=== PATIENT | male | born 1980 | race Caucasian/White ===

== ENCOUNTER 2022-03-08 10:33 | Observation (INO) | payer MEDICARE, OTHER, SELFPAY ==
[2022-03-08] VITALS (22 sets, daily range): BP systolic 126–171; BP diastolic 76–114; PULSE 60–93; RESP 17–20; TEMP 36.6–37.4; O2SAT 95–100; BMI 34.2; BMI 34.6
--- NOTE | 2022-03-08 10:50 | PC.NURSE ---
DR. FOLEY AT BEDSIDE
--- NOTE | 2022-03-08 10:54 | CT_ITS ---
FINAL REPORT TECHNIQUE: Postcontrast axial images through the abdomen and pelvis were performed. This study was performed with techniques to keep radiation doses as low as reasonably achievable, (ALARA). Individualized dose reduction techniques using automated exposure control or adjustment of mA and/or kV according to the patient's size were employed. CLINICAL HISTORY: epi and RUQ pain, periumb hernia with bruising FINDINGS: Abdomen: There is mild bibasilar atelectasis. There is mild fatty infiltration of the liver. Mild biliary ductal dilatation is identified of uncertain significance. The gallbladder is moderately distended. There is a possible stone near the neck of the gallbladder, cholecystitis is not excluded. The spleen is unremarkable. The adrenals are normal. The pancreas is unremarkable. The kidneys enhance appropriately. The aorta is normal in caliber. No free fluid or adenopathy is identified. No findings for mechanical bowel obstruction are identified. Pelvis: The appendix is not identified, may be surgically absent. There is a lobular umbilical hernia containing fat. Hernia sac measures 70 mm in transverse dimension. The urinary bladder is unremarkable. No free fluid, free air, abscess or adenopathy is identified. IMPRESSION: Mild biliary ductal dilatation of uncertain significance, MRCP may be helpful. Gallbladder is moderately distended with possible stone near the gallbladder neck, cholecystitis is not excluded. Nuclear medicine hepatobiliary scan may be helpful. Umbilical hernia as above. Reviewed, Interpreted and Dictated by Roni Sotomayor III, MD Transcribed by Екатерина Oneil Authenticated and [facility]
--- NOTE | 2022-03-08 10:57 | HMH.EDGENADL ---
Discharge Plan Disposition Chief Complaint: Nausea/Vomiting/Diarrhea Clinical Impressions Clinical Impression: Choledocholithiasis with acute cholecystitis Discharge ED Provider: Sam Vasquez General Adult HPI General Chief complaint: Nausea/Vomiting/Diarrhea Stated complaint: abdominal pain Time Seen by Provider: 03/08/22 10:41 Mode of Arrival: Ambulatory Source of Information: Patient Limitations: No Limitations Description of Symptoms (Recalled from ER Triage Doc. by RN): pt to ed c/o RUQ pain that started this morning. pt reports episodes of vomiting today. History of Present Illness HPI narrative: This is a 41-year-old male who is otherwise healthy, surgical history of appendectomy, periumbilical hernia repair (residual hernia) presenting with abdominal pain. Patient states that he began having abdominal pain at 4:30 in the morning. He woke up with the abdominal pain and it was initially 8 out of 10, but now 10 out of 10, stabbing, radiates to the right upper quadrant. Starts in the epigastric area. Does not radiate to back, neck, shoulder. Associated with nonbloody, nonbilious vomiting. Patient has not had a bowel movement in approximately 6 days, but states that he is still passing gas. Patient also states that it is normal for him to have a bowel movement approximately once a week. Denies recent travel, trauma, dysuria, hematuria, history of kidney stones, new medication additions, any other relevant history. Related Data Home Medications Medication Instructions Recorded Confirmed benztropine 1 mg tablet 1 mg PO BID seizures 03/08/22 03/08/22 divalproex 500 mg tablet,extended 500 mg PO DAILY seizures 03/08/22 03/08/22 release 24 hr fluphenazine HCl 5 mg tablet 5 mg PO BID behavior 03/08/22 03/08/22 Allergies Allergy/AdvReac Type Severity Reaction Status Date / Time No Known Allergies Allergy Verified 03/08/22 10:57 [facility] Disclaimer: The information contained in this section may have been updated after the patient was seen, as this information can be updated by other users. Social History Smoking Status: Current every day smoker alcohol intake: never current occupational status: unemployed Travel in the last 8 weeks: None ROS Obtained: Yes All systems reviewed & no additional complaints except as documented Physical Exam General General appearance: alert, in distress (Moving around in bed, cannot seem to get comfortable.) and obese Head Head exam: atraumatic, normocephalic and normal inspection Eye Eye exam: Present normal appearance, PERRL and EOMI ENT ENT exam: Present normal exam, normal oropharynx, mucous membranes moist, TM's normal bilaterally and normal external ear exam Neck Neck exam: Present normal inspection, full ROM and trachea midline; Absent meningismus or lymphadenopathy Chest Chest inspection: Present normal inspection and symmetric chest wall rise; Absent tenderness Respiratory Respiratory exam: Present normal lung sounds bilaterally; Absent respiratory distress, wheezes, stridor, accessory muscle use or prolonged expiratory phase Cardiovascular Cardiovascular exam: Present regular rate, normal rhythm and normal heart sounds; Absent JVD Abdominal Exam Abdominal exam: Present soft, distention, tenderness, normal bowel sounds, Padgett's sign and hernia (Reducible umbilical hernia with surrounding ecchymoses); Absent guarding, rebound, rigidity, Rovsing's sign, tenderness at McBurney's Point or ascites Abdominal tenderness: Present RLQ and epigastrium Extremities Exam Extremities exam: Present normal inspection, full ROM and normal capillary refill; Absent calf tenderness Back Exam Back exam: Present normal inspection; Absent tenderness, CVA tenderness (R) or CVA tenderness (L) Neurological Exam Neurological exam: Present alert, oriented X3 and CN II-XII intact; Absent motor sensory deficit Psychiatric Psychiatric exam: Present normal affect and normal mood Skin S
[2022-03-08 11:01] LABS: Microscopic, Urine URINE MICROSCOPIC (MICROSCOPIC)
[2022-03-08 11:04] LABS: Appearance,Urine TURBID (Clear); Bilirubin,Urine Negative (Negative); Blood, Urine TRACE-I (Negative); Color,Urine YELLOW (Yellow); Glucose,Urine (UA) Negative (Negative); Ketones,Urine 1+ (Negative); Leukocyte Esterase,Urine Negative (Negative); Nitrate,Urine Negative (Negative); Protein,Urine Negative (Negative); Specific Gravity, Urine 1.015 (1.005-1.030)
[2022-03-08 11:19] LABS: WBC,Urine Occasional #/hpf (0-3)
[2022-03-08 11:20] LABS: Amorphous Sediment,Urine 2+ /lpf; Bacteria,Urine 3+ /lpf; Squamous Epithelial Cell,Urine Occasional #/hpf (0-5)
[2022-03-08 11:27] LABS: Coronavirus 19, PCR Not Detected (NotDetected); Influenza A, PCR Not Detected (NotDetected); Influenza B, PCR Not Detected (NotDetected)
[2022-03-08 11:36] LABS: Chloride 103 mmol/L (98-107); Potassium 4.2 mmoL/L (3.5-5.1); Sodium 140 mmol/L (136-145)
[2022-03-08 11:38] LABS: Alanine Aminotransferase 18 U/L (12-78); Aspartate Amino Transferase 24 U/L (17-59); Basophils # 0.1 K/mm3 (0-0.2); Basophils % 0.6 % (0.1-2.0); Blood Urea Nitrogen 9 mg/dl (9-20); Creatinine Clearance Estimated 260 mL/min (50-200); Eosinophils # 0.1 K/mm3 (0.0-0.4); Eosinophils % 0.6 % (0.1-12.0); Estimated Glomerular Filt Rate 150 ml/min (>60); GFR (African American) 181 ML/MIN (>60); Hematocrit 45.1 % (42.0-52.0); Hemoglobin 14.9 g/dL (14.1-18.0); Lymphocytes # 2.3 K/mm3 (0.7-4.5); Lymphocytes % 17.2 % (10-50); Mean Corpuscular HGB Conc 33.1 g/dL (31.8-35.4); Mean Corpuscular Hemoglobin 29.4 pg (27.0-31.2); Mean Corpuscular Volume 88.8 fl (80-94); Mean Platelet Volume 8.5 fl (7.4-10.4); Monocytes # 0.5 K/mm3 (0.1-1.0); Monocytes % 3.9 % (1.7-9.3); Neutrophils # 10.5 K/mm3 (1.8-7.8); Neutrophils % 77.6 % (37.0-80.0); Platelet Count 239 K/mm3 (142-424); Red Blood Count 5.08 M/mm3 (4.60-6.20); Red Cell Distribution Width 14.6 % (11.5-17.5); White Blood Count 13.6 K/mm3 (4.8-10.8)
[2022-03-08 11:39] LABS: Albumin/Globulin Ratio 1.1 (1.1-1.8); Alkaline Phosphatase 67 U/L (38-126); Anion Gap 15.2 mEq/L (5-15); Bilirubin,Total 0.4 mg/dl (0.2-1.3); Calcium 9.3 mg/dl (8.4-10.2); Carbon Dioxide 26 mmol/L (22.0-30.0); Globulin 3.7 g/dL (1.3-3.2); Glucose 124 mg/dl (74-100); Lipase 33 U/L (23-300); Total Protein,Serum 7.7 g/dl (6.3-8.2)
[2022-03-08 11:45] LABS: Lactic Acid 2.5 mmol/L (0.7-2.1)
--- NOTE | 2022-03-08 13:57 | US_ITS ---
FINAL REPORT CLINICAL HISTORY: stones, dilation and RUQ pain FINDINGS: Sonographic images of the right upper quadrant were obtained. The pancreas is partially obscured.The liver has an unremarkable appearance. There are multiple echogenic foci in the gallbladder without well-defined shadowing, may represent tumefactive sludge or stones with poorly demonstrated shadowing. The common duct measures 5 mm. Limited images of the right kidney are unremarkable. IMPRESSION: Multiple echogenic foci in the gallbladder, may represent tumefactive sludge or stones with poorly demonstrated shadowing. Recommend follow-up ultrasound. Reviewed, Interpreted and Dictated by Roni Sotomayor III, MD Transcribed by Екатерина Oneil Authenticated and [facility]
--- NOTE | 2022-03-08 15:03 | PC.NURSE ---
FAMILY UPDATED AT THIS TIME
[2022-03-08 15:24] LABS: Reflex Lactic Add Lactic Reflex
--- NOTE | 2022-03-08 15:33 | PC.NURSE ---
Called for transfer of patient.
[2022-03-08 16:11] LABS: Lactic Acid Follow Up (RFLX 1) 1.6 mmol/L (0.7-2.1)
--- NOTE | 2022-03-08 20:47 | EXP.HP ---
History of Present Illness *Admission Date: 03/08/22 *Reason for visit:: Abdominal Pain, nausea, vomiting, constipation *History of present illness: Mr. Harris is a 41-year-old male with a past medical history of Bipolar Disorder and Schizophrenia. He presented to [facility] due to a 1-day reported history of abdominal pain associated with nausea, vomiting, abdominal bloating and constipation. He also reported body aches and chills with the symptoms. In the ER he underwent a CT of the abdomen and pelvis that showed a mild biliary ductal dilatation and a moderately distended gallbladder. LFT's and biliribuin were normal. Lactic Acid was 1.6. WBC showed a elevated WBC at 13.6. The ER contacted for tranfer for evaluation by GI for possible MRCP. The patient will be admitted while we await transfer to a higher level facility due to no specialist available at the site. The plan of care was discussed with the patient in the ER on admission. He verbalized understanding and agreement with the plan of care. [facility] Disclaimer: The information contained in this section may have been updated after the patient was seen, as this information can be updated by other users. Medical History (Updated 03/08/22 @ 20:58 by Jonathan Singh DNP) Bipolar disorder Schizophrenia Surgical History (Updated 03/08/22 @ 20:55 by Jonathan Singh DNP) H/O umbilical hernia repair History of appendectomy Social History Smoking Status: Current every day smoker alcohol intake: never current occupational status: unemployed Travel in the last 8 weeks: None Review of Systems Constitutional Constitutional: Reports system reviewed and no additional complaints, except as documented Eyes Eyes: Reports system reviewed and no additional complaints, except as documented ENT Ears, Nose, Mouth, and Throat: Reports system reviewed and no additional complaints, except as documented *Cardiovascular Cardiovascular: Reports system reviewed and no additional complaints, except as documented *Respiratory Respiratory: Reports system reviewed and no additional complaints, except as documented *Gastrointestinal Gastrointestinal: Reports abdominal pain, Reports bloating, Reports change in bowel habits, Reports constipation, Reports nausea and Reports vomiting *Genitourinary Genitourinary: Reports system reviewed and no additional complaints, except as documented *Musculoskeletal Musculoskeletal: Reports system reviewed and no additional complaints, except as documented Integumentary/Breasts Skin/Breast: Reports system reviewed and no additional complaints, except as documented *Neurologic Neurologic: Reports system reviewed and no additional complaints, except as documented Psychiatric Psychiatric: Reports as per HPI Endocrine Endocrine: Reports system reviewed and no additional complaints, except as documented Hematologic/Lymphatic Hematologic/Lymphatic: Reports system reviewed and no additional complaints, except as documented Allergic/Immunologic Allergic/Immunologic: Reports system reviewed and no additional complaints, except as documented Meds Home Medications and Allergies Home Medications Medication Instructions Recorded Confirmed Type benztropine 1 mg tablet 1 mg PO BID seizures 03/08/22 03/08/22 History divalproex 500 mg tablet,extended 500 mg PO DAILY seizures 03/08/22 03/08/22 History release 24 hr fluphenazine HCl 5 mg tablet 5 mg PO BID behavior 03/08/22 03/08/22 History polyethylene glycol 3350 17 gram 17 g PO DAILY 30 days #30 packets 03/09/22 Rx oral powder packet (Miralax) New Prescriptions to Start Prescriptions: polyethylene glycol 3350 [Miralax] Archie Woo Allergies Allergy/AdvReac Type Severity Reaction Status Date / Time No Known Allergies Allergy Verified 03/08/22 10:57 Exam Data for Last 24 hours Vital signs and Labs f
--- NOTE | 2022-03-08 23:23 | PC.NURSE ---
pt arrived to floor via wheelchair @ [phone].
--- NOTE | 2022-03-08 23:29 | PC.NURSE ---
Pt. on the floor by w/c by nursing clerk.
--- NOTE | 2022-03-09 00:23 | PC.NURSE ---
Jonathan DIOR called and aware pt. refused some of his medications.
[2022-03-09 03:43] VITALS: BP 106/61; PULSE 75; RESP 18; TEMP 37.4; O2SAT 96
[2022-03-09 03:44] VITALS: BMI 34.8
--- NOTE | 2022-03-09 05:27 | PC.NURSE ---
No acute changes since admission to the floor.
--- NOTE | 2022-03-09 07:39 | EXP.DC.SUM ---
General Admission date:: 03/08/22 Discharge date: 03/09/22 HPI HPI HPI: Mr. Harris is a 41-year-old male with a past medical history of Bipolar Disorder and Schizophrenia. He presented to [facility] due to a 1-day reported history of abdominal pain associated with nausea, vomiting, abdominal bloating and constipation. He also reported body aches and chills with the symptoms. In the ER he underwent a CT of the abdomen and pelvis that showed a mild biliary ductal dilatation and a moderately distended gallbladder. LFT's and biliribuin were normal. Lactic Acid was 1.6. WBC showed a elevated WBC at 13.6. The ER contacted for tranfer for evaluation by GI for possible MRCP. The patient will be admitted while we await transfer to a higher level facility due to no specialist available at the site. The plan of care was discussed with the patient in the ER on admission. He verbalized understanding and agreement with the plan of care. Hospital Course Hospital Course Hospital Course: 41-year-old male originally admitted because of abdominal pain and concern for choledocholithiasis. CT of abdomen showed questionable biliary dilatation and distended gallbladder, did not show stones in common bile duct however. Ultrasound obtained showing no concern for cholecystitis and no common bile duct dilatation or blockage. Review of labs showed that his liver enzymes and bilirubin were normal on initial presentation. Repeat labs the following morning still stable with no elevation in liver enzymes or bilirubin. Further history obtained from patient elicited that he has not had a bowel movement in at least [address] shows significant stool burden in right colon and intestinal gas. Pain better the following morning. Given his clinical stability, afebrile, improvement in abdominal symptoms, stable labs, I do not feel at this time this patient has choledocholithiasis. Will initiate on daily MiraLAX for constipation. Would benefit from regular bowel regimen and further monitoring. Stable for discharge home. We will cancel transfer request. Exam Data for Last 24 hours Vital signs and Labs for Last 24 Hours: Temp Pulse Resp BP Pulse Ox 99.4 F 75 18 106/61 L 96 03/09/22 03:43 03/09/22 03:43 03/09/22 03:43 03/09/22 03:43 03/09/22 03:43 Laboratory Results - last 24 hr 03/08/22 10:36: Urine Color Yellow, Urine Appearance Turbid, Urine pH 8.0, Ur Specific [place] 1.015, Urine Protein Negative, Urine Glucose (UA) Negative, Urine Ketones 1+, Urine Blood Trace-i, Urine Nitrate Negative, Urine Bilirubin Negative, Urine Urobilinogen 1.0, Ur Leukocyte Esterase Negative, Urine RBC None, Urine WBC Occasional, Ur Squamous Epith Cells Occasional, Amorphous Sediment 2+, Urine Bacteria 3+ 03/08/22 11:00: WBC 13.6 H, RBC 5.08, Hgb 14.9, Hct 45.1, MCV 88.8, MCH 29.4, MCHC 33.1, RDW 14.6, Plt Count 239, MPV 8.5, Neut % (Auto) 77.6, Lymph % (Auto) 17.2, [place] % (Auto) 3.9, Eos % (Auto) 0.6, Baso % (Auto) 0.6, Neut # (Auto) 10.5 H, Lymph # (Auto) 2.3, [place] # (Auto) 0.5, Eos # (Auto) 0.1, Baso # (Auto) 0.1 03/08/22 11:00: Sodium 140, Potassium 4.2, Chloride 103, Carbon Dioxide 26, Anion Gap 15.2 H, BUN 9, Creatinine 0.60 L, Estimated Creat Clear 260, Estimated GFR 150, Est GFR ( Amer) 181, Glucose 124 H, Calcium 9.3, Total Bilirubin 0.4, AST 24, ALT 18, Alkaline Phosphatase 67, Total Protein 7.7, Albumin 4.0, Globulin 3.7 H, Albumin/Globulin Ratio 1.1, Lipase 33 03/08/22 11:00: Lactate 2.5 H 03/08/22 11:00: SARS-CoV-2 (PCR) Not detected, Influenza A Untype (PCR) Not detected, Influenza Type B (PCR) Not detected 03/08/22 15:41: Lactate 1.6 I & O for Last 24 hours: Intake & Output 03/06/22 03/07/22 03/08/22 03/09/22 23:59 23:59 23:59 23:59 Intake Total 350 / 350 Output Total 0 / 0 Balance 0 / 0 350 / 350 Weight 112.179 kg 112.973 kg Constitutional Constitutional: no acute distress and obese *Routine HEEN
[2022-03-09 08:00] VITALS: BP 124/70; PULSE 74; RESP 18; TEMP 37.2; O2SAT 94
--- NOTE | 2022-03-09 10:42 | PC.NURSE ---
Report given to SHANICE Covarrubias at this time.
[2022-03-09 11:01] LABS: Basophils # 0.1 K/mm3 (0-0.2); Basophils % 0.6 % (0.1-2.0); Eosinophils # 0.5 K/mm3 (0.0-0.4); Eosinophils % 3.4 % (0.1-12.0); Hematocrit 41.4 % (42.0-52.0); Hemoglobin 13.7 g/dL (14.1-18.0); Lymphocytes # 2.8 K/mm3 (0.7-4.5); Lymphocytes % 17.9 % (10-50); Mean Corpuscular HGB Conc 33.2 g/dL (31.8-35.4); Mean Corpuscular Hemoglobin 29.1 pg (27.0-31.2); Mean Corpuscular Volume 87.7 fl (80-94); Mean Platelet Volume 8.3 fl (7.4-10.4); Monocytes # 1.4 K/mm3 (0.1-1.0); Monocytes % 8.8 % (1.7-9.3); Neutrophils % 69.3 % (37.0-80.0); Platelet Count 225 K/mm3 (142-424); Red Blood Count 4.72 M/mm3 (4.60-6.20); Red Cell Distribution Width 14.4 % (11.5-17.5); White Blood Count 15.9 K/mm3 (4.8-10.8)
[2022-03-09 11:04] LABS: MANUAL DIFFERENTIAL MANUAL DIFFERENTIAL (MANUAL DIFF)
[2022-03-09 11:09] LABS: Chloride 101 mmol/L (98-107); Potassium 3.8 mmoL/L (3.5-5.1); Sodium 136 mmol/L (136-145)
[2022-03-09 11:11] LABS: Blood Urea Nitrogen 10 mg/dl (9-20); Creatinine Clearance Estimated 226 mL/min (50-200); Estimated Glomerular Filt Rate 126 ml/min (>60); GFR (African American) 152 ML/MIN (>60)
[2022-03-09 11:12] LABS: Alanine Aminotransferase 8 U/L (12-78); Albumin Level 3.5 g/dl (3.5-5.0); Alkaline Phosphatase 53 U/L (38-126); Anion Gap 11.8 mEq/L (5-15); Aspartate Amino Transferase 20 U/L (17-59); Bilirubin,Total 0.8 mg/dl (0.2-1.3); Calcium 8.6 mg/dl (8.4-10.2); Carbon Dioxide 27 mmol/L (22.0-30.0); Globulin 3.4 g/dL (1.3-3.2); Glucose 80 mg/dl (74-100); Magnesium 1.9 mg/dl (1.6-2.3); Total Protein,Serum 6.9 g/dl (6.3-8.2)
[2022-03-09 11:37] LABS: Eosinophils % 2 % (0-3); Lymphocytes % 20 % (10-50); Monocytes % 10 % (2-9); Neutrophils % 68 % (42-76); Platelet Estimate Normal; RBC Morphology Normal; Total Cells Counted 100
== END 2022-03-09 12:30 | disposition home or self-care (01) | DRG 392 ==
LOC: ER 11:31 → 2ND 22:00
PROVIDERS: Admitting Provider Internal Medicine Adolescent Medicine; Emergency Provider Emergency Medicine; PCP Emergency Medicine; Visit Provider Internal Medicine Adolescent Medicine
DX: K59.00 Constipation, unspecified (principal); N39.0 Urinary tract infection, site not specified; F20.9 Schizophrenia, unspecified; F31.9 Bipolar disorder, unspecified; F17.210 Nicotine dependence, cigarettes, uncomplicated; Z79.899 Other long term (current) drug therapy
CPT/HCPCS: G0378; 36415; 74177; 76705; 80053; 81001; 83605; 83690; 83735; 85007; 85025; 87040; 87086; 99285; C9803; J2405; J2543; Q9967; U0003; U0005